=== PATIENT | female | born 1980 | race Caucasian/White ===

== ENCOUNTER 2017-02-18 13:22 | Emergency (ER) | payer OTHER ==
[2017-02-18] MEDS ORDERED: IBUPROFEN 600 MG TAB PO STA (14:08)
[2017-02-18] MEDS ORDERED: ACETAMINOPHEN TAB 325 MG TAB PO STA (14:08)
[2017-02-18 14:11] VITALS: BP 131/68; PULSE 88; RESP 18; TEMP 97.9
--- NOTE | 2017-02-18 14:13 | ED ---
Lower Extremity Injury HPI - General Chief Complaint: Extremity Injury, Lower Stated Complaint: foot injury Time Seen by Provider: 02/18/17 14:05 - History of Present Illness Initial Comments: 36-year-old female patient presents to the emergency department today for complaints of right foot pain. Patient states that just prior to arrival she was walking through the house when she stepped on one of her child's toys, states that the toy had wheels, states that this caused her foot to slide and hit the wall. She states that she is having pain in her left great toe that radiates up into her left foot. She states when she tries to ambulate the pain shoots up her foot. She denies any numbness or tingling. She denies taking anything for pain. She denies any falls, hitting her head, losing consciousness with the injury. Patient denies any headache, neck pain, back pain , chest pain, shortness of breath, dizziness, weakness, abdominal pain, nausea, vomiting, or difficulties with bowel movements or urination. - Related Data Home Medications Medication Instructions Recorded Confirmed Biv-Pnag-Bupka Acid 1 PO 10/30/13 11/08/13 [-U Capsule (formulary)] Previous Rx's Medication Instructions Recorded Acetaminophen-Codeine 300-30mg 1 tab PO Q4H PRN #30 tablet 11/10/13 [Tylenol w/codeine #3] Ibuprofen [Motrin] 600 mg PO Q6HR PRN #30 tab 11/10/13 Ibuprofen [Motrin] 600 mg PO Q8HR PRN #30 tab 02/18/17 Allergies Allergy/AdvReac Type Severity Reaction Status Date / Time No Known Allergies Allergy Verified 02/18/17 14:11 Review of Systems ROS Statement: Those systems with pertinent positive or pertinent negative responses have been documented in the HPI. ROS Other: All systems not noted in ROS Statement are negative. Past Medical History Past Medical History: No Reported History History of Any Multi-Drug Resistant Organisms: None Reported Past Surgical History: Appendectomy Additional Past Surgical History / Comment(s): 1994 Past Anesthesia/Blood Transfusion Reactions: No Reported Reaction Smoking Status: Never smoker - Past Family History Father Family Medical History: Hearing Disorder / Deafness Additional Family Medical History / Comment(s): paternal grandfather born with hearing loss. General Exam General appearance: alert, in no apparent distress, other (This is a well- developed, well-nourished adult female patient in no acute distress. Vital signs upon presentation are temperature 97.9F, pulse 88, respirations 18, blood pressure 131/68, pulse ox 100% on room air.) Eye exam: Present: normal appearance, PERRL, EOMI. Absent: scleral icterus, conjunctival injection, periorbital swelling ENT exam: Present: normal exam, normal oropharynx, mucous membranes moist Respiratory exam: Present: normal lung sounds bilaterally. Absent: respiratory distress, wheezes, rales, rhonchi, stridor Cardiovascular Exam: Present: regular rate, normal rhythm, normal heart sounds. Absent: systolic murmur, diastolic murmur, rubs, gallop, clicks Extremities exam: Present: normal inspection, full ROM, tenderness (Tenderness over the left great toe and the first metatarsal), normal capillary refill, other (No evidence of swelling to the left foot. Skin is pink, warm, and dry. Cap refills less than 3 seconds. Pedal and posttibial pulses are 2+ and equal bilaterally.). Absent: pedal edema, joint swelling, calf tenderness Neurological exam: Present: alert, oriented X3, CN II-XII intact Psychiatric exam: Present: normal affect, normal mood Skin exam: Present: warm, dry, intact, normal color. Absent: rash Course Vital Signs 02/18/17 14:06 Temperature 97.9 F Pulse Rate 88 Respiratory 18 Rate Blood Pressure 131/68 O2 Sat by Pulse 100 Oximetry Medical Decision Making - Medical Decision Making 36-year-old female patient presented to the emergency department today for evaluation of left foot pain after an injury at home. Physical examination is unremarkable. Distal pulses are intact. Skin is pink, warm, and dry. Cap refills less than 3 seconds. X-ray was obtained and showed no acute fractures or dislocation. Did show osteoarthritic changes and a heel spur. Patient will be given an Hermann wrap, discharged home to take ibuprofen for pain control. She is instructed to ice and elevate the foot. She is instructed to follow-up with her primary care physician for reevaluation and possible repeat x-ray for pain symptoms persist in 7-10 days. She is instructed to return here immediately for any new, worsening, or concerning symptoms. She verbalizes understanding and agrees with this plan. - Radiology Data Radiology results: report reviewed, image reviewed 3 views of the left foot are obtained and show bone mineralization, joint spaces , and alignment are maintained, soft tissues are normal. Some spurring present at the tarsometatarsal joints compatible with osteoarthritic change. There is a small plantar calcaneal spur. Impression by Dr. Monsivais says no acute fracture or dislocation. No radiopaque foreign body. Disposition Clinical Impression: Sprain of foot, left Disposition: HOME SELF-CARE Condition: Good Instructions: Foot Sprain (ED) Additional Instructions: Wear Hermann wrap as needed for comfort and support. Take Motrin (ibuprofen) and Tylenol (Acetaminophen) for pain control. Rest, ice, and elevate the extremity. Apply ice at least 20 minutes at a time 4 times daily. Follow-up with her primary care physician for repeat x-rays in 7-10 days if pain symptoms persist. Return here immediately for any new, worsening, or concerning symptoms. Prescriptions: Ibuprofen [Motrin] 600 mg PO Q8HR PRN #30 tab PRN Reason: Pain Referrals: Lynn Wyatt MD [Primary Care Provider] - 1-2 days Time of Disposition: 14:32
--- NOTE | 2017-02-18 14:28 | XR ---
Left foot HISTORY: Trauma and pain 3 views of the left foot No comparisons Bone mineralization, joint spaces and alignment are maintained, soft tissues are normal. Some spurrin g present at the tarsometatarsal joints compatible with osteoarthritic change. There is a small plant ar calcaneal spur. IMPRESSION: No acute fracture or dislocation. No radiopaque foreign body.
== END 2017-02-18 14:54 | disposition home or self-care (01) ==
LOC: EC 13:22
DX: S93.402A Sprain of unspecified ligament of left ankle, initial encounter (principal); Z79.899 Other long term (current) drug therapy; W22.01XA Walked into wall, initial encounter; Y92.009 Unspecified place in unspecified non-institutional (private) residence as the place of occurrence of the external cause; Y93.01 Activity, walking, marching and hiking
CPT/HCPCS: 99283